=== PATIENT | female | born 1970 | race Caucasian/White ===

== ENCOUNTER 2018-03-09 16:44 | Emergency (ER) | payer OTHER ==
[2018-03-09 16:54] VITALS: BP 156/104
--- NOTE | 2018-03-09 18:03 | EDPHY ---
H & P Stated Complaint: NECK PROB/LAST CHIROPRACTIC LAST SUNDAY/AWAKENED WITH NECK/L SHOULDER/ARM P Time Seen by Provider: 03/09/18 16:58 HPI/ROS: Chief Complaint: Neck pain, arm numbness HPI: 48-year-old woman presenting with 2 days of worsening left-sided neck pain with numbness in her forearm and little finger. She denies any falls or injuries. She is patient states she woke up with this 2 days ago. Does have a history of similar episodes in the past which resolved on their own. She has not been it dropping things but is primarily right-handed. She has been getting chiropractic manipulations almost every day for some chronic back discomfort. No fevers or chills. No relief with acetaminophen. She cannot take ibuprofen as she has a history of gastric bypass. ROS: 10 systems were reviewed and were negative except those elements noted in the HPI. PMH: Diabetes, hypertension, hyperlipidemia, gastric bypass Social History: No smoking, no alcohol, no recreational drug use Family History: non-contributory Physical Exam: Gen: Awake, Alert, No Distress, obese HEENT: Nose: no rhinorrhea Eyes: PERRLA, EOMI Mouth: Moist mucosa Neck: Supple, no JVD, left paraspinal soft tissue tenderness in the trapezius. Back: no CVA tenderness, no midline tenderness Ext: no edema, non-tender Skin: no rash Neuro: CN II-XII intact, Sensation grossly intact, Strength 5/5 in bilateral upper and lower extremities, she has subjective numbness in the ulnar nerve distribution. She has normal strength. - Personal History LMP (Females 10-55): 22-28 Days Ago Current Tetanus Diphtheria and Acellular Pertussis (TDAP): Yes - Medical/Surgical History Hx Asthma: No Hx Chronic Respiratory Disease: No Hx Diabetes: Yes Hx Cardiac Disease: No Hx Renal Disease: No Hx Cirrhosis: No Hx Alcoholism: No Hx HIV/AIDS: No Hx Splenectomy or Spleen Trauma: No Other PMH: DIAB/GASTRIC SLEEVE ULCER HERNIA EYE SURGERIES/HTN - Social History Smoking Status: Never smoked Constitutional: Initial Vital Signs Temperature (C) 37 C 03/09/18 16:50 Heart Rate 102 H 03/09/18 16:50 Respiratory Rate 20 03/09/18 16:50 Blood Pressure 156/104 H 09/01/18 16:50 O2 Sat (%) 95 03/09/18 16:50 O2 Delivery Mode Room Air Allergies/Adverse Reactions: bupropion [From Wellbutrin] Allergy (Verified 03/09/18 16:47) lisinopril Allergy (Verified 03/09/18 16:47) Home Medications: Medication Instructions Recorded Amlodipine Besylate 03/09/18 DULoxetine 03/09/18 Hydrocodone/Acetaminophen 1 - 2 each PO Q4-6PRN PRN #10 03/09/18 [Hydrocodon-Acetaminophen 5-325] tablet Levothyroxine 03/09/18 Metformin HCl 03/09/18 Pravastatin Sodium 03/09/18 predniSONE 60 mg PO DAILY #9 tab 03/09/18 Medical Decision Making - Diagnostics Imaging: Discussed imaging studies w/ orthopedically impaired teacher Radiologist ED Course/Re-evaluation: MRI results noted. Will start on prednisone and [place]. Follow up with neurosurgery. Departure - Departure Disposition: Home, Routine, Self-Care Clinical Impression: Cervical radiculopathy at C5 Condition: Good Instructions: Cervical Radiculopathy (ED), Neck Pain (ED) Additional Instructions: May take [place] as prescribed. Take your prednisone daily as prescribed. Follow up with neurosurgeon in 3-4 days for further evaluation. Referrals: Juan Khalil MD [Medical Doctor] - As per Instructions Prescriptions: Hydrocodone/Acetaminophen [Hydrocodon-Acetaminophen 5-325] 1 - 2 each PO Q4- 6PRN PRN #10 tablet PRN Reason: Pain, Severe predniSONE 60 mg PO DAILY #9 tab
[2018-03-09] MEDS ORDERED: predniSONE 20 MG TAB PO ONE (18:33)
[2018-03-09] MEDS ORDERED: HYDROCODONE/APAP 5/325 TAB PO ONE (18:33)
[2018-03-09] MEDS ORDERED: HYDROCOD/APAP 5/325 PREPACK#6 BTL TAKEHOME ONE (18:35)
== END 2018-03-09 18:49 | disposition home or self-care (01) ==
DX: M50.121 Cervical disc disorder at C4-C5 level with radiculopathy (principal)
CPT/HCPCS: J7512

== ENCOUNTER → 2018-04-12 | Outpatient (CLI) | payer OTHER | LOC: FCPNEURO 21:30 | PROVIDERS: ATTEND Psychiatry & Neurology Sleep Medicine | DX: G47.33 Obstructive sleep apnea (adult) (pediatric) (principal) ==

== ENCOUNTER → 2018-05-09 | Outpatient (CLI) | payer OTHER | LOC: FIMAGING 08:04 | PROVIDERS: ATTEND Family Medicine | DX: Z12.31 Encounter for screening mammogram for malignant neoplasm of breast (principal) ==

== ENCOUNTER → 2018-06-20 | Outpatient (CLI) | payer OTHER ==
[~2018-06-20] MED LIST: GADOBUTROL 10 ML VIAL IVP ONE
== END ==
LOC: FIMAGING 07:07
PROVIDERS: ATTEND Family Medicine
DX: R92.8 Other abnormal and inconclusive findings on diagnostic imaging of breast (principal)
CPT/HCPCS: 82565-PO; A9585; C8908